=== PATIENT | male | born 1955 | race Caucasian/White ===

== ENCOUNTER 2016-08-01 08:35 | Inpatient (IN) | payer BC ==
[2016-08-01] MEDS ORDERED: NORMAL SALINE 1000 ML 1,000 ML IV ONE ×2 (08:58→09:00)
--- NOTE | 2016-08-01 08:58 | ER Document Report ---
ED Fall - General Time seen by provider: 08:55 Mode of Arrival: Medic Information source: Patient TRAVEL OUTSIDE OF THE [place] IN LAST 30 DAYS: No <LUDIVINA VARGAS - Last Filed: 08/01/16 09:32> <MK MELARA - Last Filed: 08/01/16 11:29> - General Chief Complaint: Fall Stated Complaint: FALL/HEAD INJURY Notes: Patient is a 61 year old male presenting to the ED for fall related to hypotension. Patient has not had a good appetite or intake of fluids over the past week because of vomiting, nausea, and diarrhea. Patient states the first full meal he had in 1 week was yesterday. Patient has also been lightheaded. Patient has a history of hypertension and is taking lisinopril and metoprolol. Patient also has a history of diabetes mellitus and is taking metformin. Patient has a history of stroke on 07/21/14. Patient has no known allergies. ( LUDIVINA VARGAS) - Related data Allergies/Adverse Reactions: No Known Allergies Allergy (Verified 08/01/16 08:38) Home Medications: Current Home Medications Amlodipine Besylate 5 mg PO DAILY 08/01/16 [History] Glipizide 5 mg PO BID 08/01/16 [History] Lisinopril/Hydrochlorothiazide [Lisinopril-Hctz 20-25 mg Tab] 1 each PO DAILY [History] Montelukast Sodium 10 mg PO DAILY 08/01/16 [History] Sitagliptin Phosphate [Januvia] 100 mg PO DAILY 08/01/16 [History] Past Medical History - General Information source: Patient - Social History Smoking Status: Never Smoker Cigarette use (# per day): No Chew tobacco use (# tins/day): No Frequency of alcohol use: None Drug Abuse: None Family History: None Patient has suicidal ideation: No Patient has homicidal ideation: No - Past Medical History Cardiac Medical History: Reports: Hx Hypertension - metoprolol and lisinopril Neurological Medical History: Reports: Hx Cerebrovascular Accident - left pontine infarct 07/21/14 Endocrine Medical History: Reports: Hx Diabetes Mellitus Type 2 Surgical Hx: Negative - Immunizations Hx Diphtheria, Pertussis, Tetanus Vaccination: No Hx Pneumococcal Vaccination: 05/02/13 <LUDIVINA VARGAS - Last Filed: 08/01/16 09:32> - Past Medical History Cardiac Medical History: Reports: Hx Hypercholesterolemia Pulmonary Medical History: Reports: None EENT Medical History: Reports: None Renal/ Medical History: Reports: None GI Medical History: Reports: None Musculoskeltal Medical History: Reports None Psychiatric Medical History: Reports: None <MK MELARA - Last Filed: 08/01/16 11:29> Review of Systems - Review of Systems Constitutional: No symptoms reported EENT: No symptoms reported Cardiovascular: See HPI, Lightheaded Respiratory: No symptoms reported Gastrointestinal: See HPI, Diarrhea, Nausea, Vomiting Genitourinary: No symptoms reported Male Genitourinary: No symptoms reported Musculoskeletal: No symptoms reported Skin: No symptoms reported Hematologic/Lymphatic: No symptoms reported Neurological/Psychological: See HPI -: Yes All other systems reviewed and negative <LUDIVINA VARGAS - Last Filed: 08/01/16 09:32> Physical Exam - Vital signs Interpretation: Hypotensive - General General appearance: Appears well, Alert In distress: Mild - HEENT Head: Normocephalic, Other - soft area to the top of the crown Eyes: Normal Pupils: PERRL Mucous membranes: Moist - Respiratory Respiratory status: No respiratory distress Chest status: Nontender Breath sounds: Normal Chest palpation: Normal - Cardiovascular Rhythm: Regular Heart sounds: Normal auscultation Murmur: No - Abdominal Inspection: Normal Distension: No distension Bowel sounds: Normal Tenderness: Nontender Organomegaly: No organomegaly - Back Back: Normal, Nontender. No: CVA tenderness - Extremities General upper extremity: Normal inspection, Normal ROM, Normal strength General lower extremity: Normal inspection, Normal ROM, Normal strength - Neurological Neuro grossly intact: Yes Cognition: Normal Orientation: AAOx4 [place] Scale Eye Opening: Spontaneous [place] Scale Verbal: Oriented [place] Scale Motor: Obeys Commands [place] Scale Total: 15 Speech: Normal Sensory: Normal - Psychological Associated symptoms: Normal affect, Normal mood - Skin Skin Temperature: Warm Skin Moisture: Dry <LUDIVINA VARGAS - Last Filed: 08/01/16 09:32> Course - Laboratory Result Diagrams: 08/01/16 08:52 08/01/16 08:52 <LUDIVINA VARGAS - Last Filed: 08/01/16 09:32> - Laboratory Result Diagrams: 08/01/16 08:52 08/01/16 08:52 - Diagnostic Test Radiology reviewed: Image reviewed, Reports reviewed - CT of the head shows a right occipital contusion with swelling. No intracranial injury. - EKG Interpretation by Me EKG shows normal: Sinus rhythm, [place], Intervals, QRS Complexes, ST-T Waves Rate: Normal - 58 Heart block present: 1st Degree When compared to previous EKG there are: No significant change - Consults Dr. Payan Time consulted: 11:25 Consulted provider: will come to ER <MK MELARA - Last Filed: 08/01/16 11:29> - Vital Signs Vital signs: Temp Pulse Resp BP Pulse Ox 97.4 F 63 19 98/59 L 100 08/01/16 08:41 08/01/16 08:41 08/01/16 11:16 08/01/16 11:16 08/01/16 11:16 - Laboratory Laboratory results interpreted by me: 08/01/16 08/01/16 08:52 08:52 WBC 11.1 H Hgb 13.0 L Hct 36.2 L Absolute Neutrophils 8.3 H Sodium 131.4 L Potassium 3.4 L Chloride 90 L BUN 126 H Creatinine 6.52 H Est GFR ( Amer) 11 L Est GFR (Non-Af Amer) 9 L Total Bilirubin 2.4 H Creatine Kinase 198 H Discharge <LUDIVINA VARGAS - Last Filed: 08/01/16 09:32> - Discharge Admitting Provider: Hospitalist Unit Admitted: Telemetry <MK MELARA - Last Filed: 08/01/16 11:29> - Discharge Clinical Impression: Syncope and collapse, Nausea, vomiting and diarrhea Contusion of occipital region of scalp Qualifiers: Encounter type: initial encounter Qualified Code(s): S00.03XA - Contusion of scalp, initial encounter Hypotension Qualifiers: Hypotension type: other hypotension type Qualified Code(s): I95.89 - Other hypotension Acute renal failure Qualifiers: Acute renal failure type: unspecified Qualified Code(s): N17.9 - Acute kidney failure, unspecified Condition: Stable Disposition: ADMITTED INPATIENT Referrals: CARSON KIRAN DO [Primary Care Provider] - Follow up as needed Scribe Attestation: 08/01/16 11:29 I personally performed the services described in the documentation, reviewed and edited the documentation which was dictated to the scribe in my presence, and it accurately records my words and actions. (MK MELARA) Scribe Documentation - Scribe Written by Scrjose:: Ludivina Vargas 08/01/16 10:35 acting as scribe for :: Shelly <LUDIVINA VARGAS - Last Filed: 08/01/16 09:32>
[2016-08-01] MEDS ORDERED: ONDANSETRON HCL INJ/PF 4 MG/2 ML SDV IV ONE (08:59)
[2016-08-01 09:04] LABS: ABSOLUTE EOSINOPHILS # (AUTO) 0.1 10^3/uL (0.0-0.6); ABSOLUTE LYMPHOCYTES (AUTO) 1.7 10^3/uL (0.5-4.7); ABSOLUTE NEUT (AUTO) 8.3 10^3/uL (1.7-8.2); BASOPHILS % (AUTO) 0.3 % (0-2); EOSINOPHILS % (AUTO) 0.9 % (0-6); HEMATOCRIT 36.2 % (37.9-51.0); HGB HCT DIFFERENCE 2.8; MEAN CORPUSCULAR HEMOGLOBIN 29.3 pg (27.0-33.4); MEAN CORPUSCULAR VOLUME 82 fl (80-97); MONOCYTES % (AUTO) 8.9 % (3-13); RED BLOOD COUNT 4.45 10^6/uL (4.35-5.55); SEGMENTED NEUTROPHILS % (AUTO) 74.9 % (42-78); WHITE BLOOD COUNT 11.1 10^3/uL (4.0-10.5)
[2016-08-01 09:25] LABS: ALANINE AMINOTRANSFERASE 27 U/L (21-72); ALKALINE PHOSPHATASE 60 U/L (38-126); ANION GAP 19 (5-19); ASPARTATE AMINO TRANSFERASE 18 U/L (17-59); BILIRUBIN,DIRECT 0.3 mg/dL (0.0-0.4); BILIRUBIN,TOTAL 2.4 mg/dL (0.2-1.3); CALCIUM 9.1 mg/dL (8.4-10.2); CARBON DIOXIDE 22 mmol/L (22-30); CHLORIDE 90 mmol/L (98-107); CREATINE KINASE 198 U/L (55-170); CREATININE RESULT 6.52 mg/dL (0.52-1.25); GLUCOSE 91 mg/dL (75-110); POTASSIUM 3.4 mmol/L (3.6-5.0); SODIUM 131.4 mmol/L (137-145); TOTAL PROTEIN 7.2 g/dL (6.3-8.2)
[2016-08-01 09:35] LABS: BLOOD UREA NITROGEN 126 mg/dL (7-20)
[2016-08-01 09:38] LABS: TROPONIN I < 0.012 ng/mL
[2016-08-01] MEDS ORDERED: RINGERS SOLUTION,LACTATED 1,000 ML IV ONE (10:14)
[2016-08-01] MEDS ORDERED: ACETAMINOPHEN 325 MG TABLET PO PRN (12:33)
[2016-08-01] MEDS ORDERED: ONDANSETRON 4 MG TAB.RAPDIS PO PRN (12:33)
[2016-08-01] MEDS ORDERED: ALBUTEROL SULFATE 0.083% NEB 2.5 MG/3 ML AMPUL NEB PRN (12:33)
[2016-08-01] MEDS ORDERED: ONDANSETRON HCL INJ/PF 4 MG/2 ML SDV IV PRN (12:33)
[2016-08-01] MEDS ORDERED: GLUCAGON,HUMAN RECOMB 1 MG INJ IM PRN (12:39)
[2016-08-01] MEDS ORDERED: DEXTROSE 40% GEL 15 GM TUBE PO PRN ×2 (12:39)
[2016-08-01] MEDS ORDERED: DEXTROSE 50%-WATER 25 GM/50 ML DISP.SYRIN IV PRN ×2 (12:39)
[2016-08-01] MEDS: NORMAL SALINE 1000 ML 1,000 ML IV PRN ×3 (12:59→23:55)
--- NOTE | 2016-08-01 13:06 | PDOC H&P ---
History of Present Illness Admission Date/PCP: 08/01/16 11:40 CARSON KIRAN DO Patient complains of: Passing out History of Present Illness: LARRY ARAGON is a 61 year old male who has a history of diabetes who reports a one-week history of nausea vomiting and decreased by mouth intake. He relates that his was sick 2 weeks ago with a similar illness. The patient has had decreased urinary output as well as the nausea and vomiting. Patient got up this morning and had a syncopal episode. He was found by his son who heard him fall onto the kitchen floor. The patient was awake when the son got to the kitchen and there was no evidence for any type of seizure activity. Patient did hit his head. He denies any prodromal symptoms. Denies any palpitations or tachycardia. His blood sugars have been normal by his report. He reports she's lost 15 pounds in the last week. Denies any fevers or chills. Past Medical History Cardiac Medical History: Reports: Hyperlipidema, Hypertension - metoprolol and lisinopril Pulmonary Medical History: Reports: None EENT Medical History: Reports: None Endocrine Medical History: Reports: Diabetes Mellitus Type 2 Renal/ Medical History: Reports: None GI Medical History: Reports: None Musculoskeltal Medical History: Reports: None Psychiatric Medical History: Reports: None Traumatic Medical History: Reports: None Infectious Medical History: Reports: None Past Surgical History Past Surgical History: Reports: None Social History Information Source: Patient Lives with: Family Smoking Status: Never Smoker Frequency of Alcohol Use: None Hx Recreational Drug Use: No Hx Prescription Drug Abuse: No - Advance Directive Resuscitation Status: Full Code Family History Family History: None Family History: Father is 79 alive and has coronary artery disease. Mother 78 alive and healthy. Parental Family History Reviewed: Yes Children Family History Reviewed: No Sibling(s) Family History Reviewed.: No Medication/Allergy Allergies/Adverse Reactions: No Known Allergies Allergy (Verified 08/01/16 08:38) Review of Systems Constitutional: PRESENT: weight loss. ABSENT: chills, fever(s), headache(s) Eyes: ABSENT: visual disturbances Cardiovascular: ABSENT: chest pain, dyspnea on exertion, edema, orthropnea, palpitations Respiratory: ABSENT: cough, hemoptysis Gastrointestinal: PRESENT: diarrhea, nausea, vomiting. ABSENT: abdominal pain, bloating, coffee ground emesis, constipation Musculoskeletal: ABSENT: joint swelling Integumentary: ABSENT: rash, wounds Neurological: ABSENT: abnormal gait, abnormal speech, confusion, dizziness, focal weakness, syncope Psychiatric: ABSENT: anxiety, depression Hematologic/Lymphatic: ABSENT: easy bleeding, easy bruising Physical Exam Vital Signs: Temp Pulse Resp BP Pulse Ox 97.4 F 63 22 H 97/64 L 99 08/01/16 08:41 08/01/16 08:41 08/01/16 12:30 08/01/16 12:31 08/01/16 12:31 General appearance: PRESENT: no acute distress, obese Head exam: PRESENT: atraumatic, normocephalic Eye exam: PRESENT: conjunctiva pink, EOMI, PERRLA. ABSENT: scleral icterus Ear exam: PRESENT: normal external ear exam Mouth exam: PRESENT: moist, tongue midline Neck exam: ABSENT: carotid bruit, JVD, lymphadenopathy, thyromegaly Respiratory exam: PRESENT: clear to auscultation janneth. ABSENT: rales, rhonchi, wheezes Cardiovascular exam: PRESENT: RRR. ABSENT: diastolic murmur, rubs, systolic murmur GI/Abdominal exam: PRESENT: normal bowel sounds, soft. ABSENT: distended, guarding, mass, organolmegaly, rebound, tenderness Extremities exam: ABSENT: calf tenderness, clubbing, pedal edema Neurological exam: PRESENT: alert, awake, oriented to person, oriented to place , oriented to time, oriented to situation, CN II-XII grossly intact, motor sensory deficit - Patient's right upper extremity 4 out of 5 strength. Psychiatric exam: PRESENT: appropriate affect, normal mood. ABSENT: homicidal ideation, suicidal ideation Skin exam: PRESENT: dry, intact, warm. ABSENT: cyanosis, rash Results Impressions: Head CT 08/01/16 10:15 IMPRESSION: No acute intracranial findings. Scalp swelling-hematoma. Assessment & Plan - Diagnosis (1) Syncope and collapse Is this a current diagnosis for this admission?: YesPlan: Syncope most likely is from prerenal causes given his acute renal failure and significant dehydration. We will have him monitored on telemetry and check serial cardiac enzymes to make certain there is not an acute cardiac event. (2) Acute renal failure Qualifiers: Acute renal failure type: unspecified Qualified Code(s): N17.9 - Acute kidney failure, unspecified Is this a current diagnosis for this admission?: YesPlan: Patient has had acute renal failure secondary to dehydration because of a gastroenteritis (3) Contusion of occipital region of scalp Qualifiers: Encounter type: initial encounter Qualified Code(s): S00.03XA - Contusion of scalp, initial encounter Is this a current diagnosis for this admission?: YesPlan: Head CT shows no acute intracranial abnormalities (4) Nausea, vomiting and diarrhea Is this a current diagnosis for this admission?: YesPlan: Most likely secondary to acute viral gastroenteritis (5) Diabetes mellitus type 2 in nonobese Is this a current diagnosis for this admission?: YesPlan: We'll hold his oral agents and cover with sliding scale insulin. (6) HTN (hypertension) Is this a current diagnosis for this admission?: YesPlan: Will hold his antihypertensives as he is very dehydrated at this time. The patient's delmi inhibitors probably will not be restarted unless his creatinine returns to normal. - Time Time Spent: 50 to 70 Minutes - Inpatient Certification Medical Necessity: Need For IV Fluids
[2016-08-01] MEDS: HEPARIN SOD (PORCINE) 5,000 UNIT/ML 1 ML SYRINGE SUBCUT SCH ×2 (14:46→22:10)
[2016-08-01 16:05] LABS: APPEARANCE,URINE CLEAR; BILIRUBIN,URINE NEGATIVE (NEGATIVE); GLUCOSE, URINE NEGATIVE (NEGATIVE); KETONES,URINE NEGATIVE (NEGATIVE); LEUKOCYTE ESTERASE,URINE MODERATE (NEGATIVE); NITRITE,URINE NEGATIVE (NEGATIVE); PROTEIN,URINE NEGATIVE (NEGATIVE); URINE SPECIFIC GRAVITY 1.006; UROBILINOGEN,URINE NEGATIVE mg/dL (<2.0)
[2016-08-01 16:06] LABS: TROPONIN I < 0.012 ng/mL
--- NOTE | 2016-08-01 21:11 | EKG REPORT ---
SEVERITY:- ABNORMAL ECG - SINUS RHYTHM FIRST DEGREE AV BLOCK : Confirmed by: Anai Arambula MD 01-Aug-2016 21:09:52
[2016-08-01 21:27] LABS: CREATINE KINASE MB 2.45 ng/mL (<4.55)
[2016-08-01 21:31] LABS: TROPONIN I < 0.012 ng/mL
[2016-08-01] MEDS ORDERED: FAMOTIDINE 20 MG TABLET PO SCH (22:00)
[2016-08-01] MEDS: FAMOTIDINE 20 MG TABLET PO SCH (22:32)
[2016-08-02 03:38] LABS: MEAN CORPUSCULAR VOLUME 81 fl (80-97)
[2016-08-02 03:43] LABS: HEMATOCRIT 30.1 % (37.9-51.0); HGB HCT DIFFERENCE 2.3; MEAN CORPUSCULAR HEMOGLOBIN 29.2 pg (27.0-33.4); RED BLOOD COUNT 3.72 10^6/uL (4.35-5.55); RED CELL DISTRIBUTION WIDTH 13.1 % (11.5-14.0); WHITE BLOOD COUNT 5.7 10^3/uL (4.0-10.5)
[2016-08-02 03:48] LABS: HEMOGLOBIN 10.8 g/dL (13.5-17.0)
[2016-08-02 03:56] LABS: ANION GAP 15 (5-19); CALCIUM 8.2 mg/dL (8.4-10.2); CARBON DIOXIDE 17 mmol/L (22-30); CHLORIDE 105 mmol/L (98-107); CREATININE RESULT 3.19 mg/dL (0.52-1.25); GLUCOSE 110 mg/dL (75-110); MAGNESIUM 1.9 mg/dL (1.6-2.3); POTASSIUM 3.2 mmol/L (3.6-5.0); SODIUM 136.7 mmol/L (137-145)
[2016-08-02 04:12] LABS: BLOOD UREA NITROGEN 104 mg/dL (7-20)
[2016-08-02 04:13] LABS: TROPONIN I < 0.012 ng/mL
[2016-08-02] MEDS: HEPARIN SOD (PORCINE) 5,000 UNIT/ML 1 ML SYRINGE SUBCUT SCH ×3 (05:45→23:15)
[2016-08-02] MEDS: FAMOTIDINE 20 MG TABLET PO SCH ×2 (09:27→23:14)
--- NOTE | 2016-08-02 11:35 | PDOC PROGRESS REPORT ---
Subjective Progress Note for:: 08/02/16 Subjective:: Patient reports he feels much better and is tolerating by mouth. Physical Exam Vital Signs: Temp Pulse Resp BP Pulse Ox 97.8 F 83 16 119/65 95 08/02/16 08:35 08/02/16 09:17 08/02/16 08:35 08/02/16 08:35 08/02/16 09:17 Intake & Output 08/01/16 08/02/16 08/03/16 06:59 06:59 06:59 Intake Total 2580 Output Total 1450 Balance 1130 Weight 104 kg General appearance: PRESENT: no acute distress Eye exam: PRESENT: conjunctiva pink. ABSENT: scleral icterus Mouth exam: PRESENT: moist, tongue midline Neck exam: ABSENT: JVD Respiratory exam: PRESENT: clear to auscultation janneth. ABSENT: rales, rhonchi, wheezes Cardiovascular exam: PRESENT: RRR. ABSENT: diastolic murmur, rubs, systolic murmur GI/Abdominal exam: PRESENT: normal bowel sounds, soft. ABSENT: distended, guarding, mass, organolmegaly, rebound, tenderness Extremities exam: ABSENT: calf tenderness, clubbing, pedal edema Neurological exam: PRESENT: alert, awake, oriented to person, oriented to place , oriented to time, oriented to situation, CN II-XII grossly intact. ABSENT: motor sensory deficit Psychiatric exam: PRESENT: appropriate affect Skin exam: PRESENT: dry, intact, warm. ABSENT: cyanosis, rash Results Laboratory Results: 08/02/16 03:30 08/02/16 03:30 08/01/16 08/01/16 08/01/16 12:53 12:53 15:50 WBC RBC Hgb Hct MCV MCH MCHC RDW Plt Count Sodium Potassium Chloride Carbon Dioxide Anion Gap BUN Creatinine Est GFR ( Amer) Est GFR (Non-Af Amer) Glucose Calcium Magnesium Urine Color STRAW Urine Appearance CLEAR Urine pH 5.0 Ur Specific [place] 1.006 Urine Protein NEGATIVE Urine Glucose (UA) NEGATIVE Urine Ketones NEGATIVE Urine Blood NEGATIVE Urine Nitrite NEGATIVE Ur Leukocyte Esterase MODERATE H Urine WBC (Auto) 1 Urine RBC (Auto) 1 Stool Occult Blood NEGATIVE Stool for White Cells NO WBCs SEEN 08/02/16 08/02/16 03:30 03:30 WBC 5.7 RBC 3.72 L Hgb 10.8 L D Hct 30.1 L MCV 81 MCH 29.2 MCHC 36.0 RDW 13.1 Plt Count 135 L Sodium 136.7 L Potassium 3.2 L Chloride 105 Carbon Dioxide 17 L Anion Gap 15 BUN 104 H D Creatinine 3.19 H Est GFR ( Amer) 24 L Est GFR (Non-Af Amer) 20 L Glucose 110 Calcium 8.2 L Magnesium 1.9 Urine Color Urine Appearance Urine pH Ur Specific [place] Urine Protein Urine Glucose (UA) Urine Ketones Urine Blood Urine Nitrite Ur Leukocyte Esterase Urine WBC (Auto) Urine RBC (Auto) Stool Occult Blood Stool for White Cells 08/01/16 08/01/16 08/01/16 15:05 15:05 20:51 Creatine Kinase 154 137 CK-MB (CK-2) 2.90 Troponin I < 0.012 08/01/16 08/02/16 08/02/16 20:51 03:30 03:30 Creatine Kinase 122 CK-MB (CK-2) 2.45 1.60 Troponin I < 0.012 < 0.012 Impressions: Head CT 08/01/16 10:15 IMPRESSION: No acute intracranial findings. Scalp swelling-hematoma. Assessment & Plan - Diagnosis (1) Syncope and collapse Is this a current diagnosis for this admission?: YesPlan: Syncope most likely is from prerenal causes given his acute renal failure and significant dehydration. Cardiac enzymes have been negative. (2) Acute renal failure Qualifiers: Acute renal failure type: unspecified Qualified Code(s): N17.9 - Acute kidney failure, unspecified Is this a current diagnosis for this admission?: YesPlan: Patient has had acute renal failure secondary to dehydration because of a gastroenteritis. Patient's renal function has improved overnight. (3) Contusion of occipital region of scalp Qualifiers: Encounter type: initial encounter Qualified Code(s): S00.03XA - Contusion of scalp, initial encounter Is this a current diagnosis for this admission?: YesPlan: Head CT shows no acute intracranial abnormalities (4) Nausea, vomiting and diarrhea Is this a current diagnosis for this admission?: YesPlan: Most likely secondary to acute viral gastroenteritis (5) Diabetes mellitus type 2 in nonobese Is this a current diagnosis for this admission?: YesPlan: We'll hold his oral agents and cover with sliding scale insulin. (6) HTN (hypertension) Is this a current diagnosis for this admission?: YesPlan: Will hold his antihypertensives at this time. The patient's delmi inhibitors probably will not be restarted unless his creatinine returns to normal. - Time Time Spent with patient: 25-34 minutes
[2016-08-02] MEDS: INSULIN REG, HUMAN 100 UNIT/ML 3 ML VIAL (PYX) SUBCUT PRN ×2 (12:36→16:39)
[2016-08-02] MEDS: NORMAL SALINE 1000 ML 1,000 ML IV PRN (23:53)
[2016-08-03 04:50] LABS: ABSOLUTE EOSINOPHILS # (AUTO) 0.2 10^3/uL (0.0-0.6); ABSOLUTE LYMPHOCYTES (AUTO) 1.4 10^3/uL (0.5-4.7); ABSOLUTE MONOCYTES (AUTO) 0.5 10^3/uL (0.1-1.4); ABSOLUTE NEUT (AUTO) 3.1 10^3/uL (1.7-8.2); BASOPHILS % (AUTO) 0.7 % (0-2); EOSINOPHILS % (AUTO) 3.6 % (0-6); HEMATOCRIT 31.2 % (37.9-51.0); HEMOGLOBIN 11.3 g/dL (13.5-17.0); HGB HCT DIFFERENCE 2.7; LYMPHOCYTES % (AUTO) 27.7 % (13-45); MEAN CORPUSCULAR HEMOGLOBIN 29.4 pg (27.0-33.4); MEAN CORPUSCULAR HGB CONC 36.3 g/dL (32.0-36.0); MEAN CORPUSCULAR VOLUME 81 fl (80-97); MONOCYTES % (AUTO) 9.6 % (3-13); RED BLOOD COUNT 3.86 10^6/uL (4.35-5.55); RED CELL DISTRIBUTION WIDTH 13.3 % (11.5-14.0); SEGMENTED NEUTROPHILS % (AUTO) 58.4 % (42-78); WHITE BLOOD COUNT 5.2 10^3/uL (4.0-10.5)
[2016-08-03 04:59] LABS: ANION GAP 12 (5-19); BLOOD UREA NITROGEN 57 mg/dL (7-20); CALCIUM 8.4 mg/dL (8.4-10.2); CARBON DIOXIDE 20 mmol/L (22-30); CHLORIDE 112 mmol/L (98-107); GLUCOSE 121 mg/dL (75-110); POTASSIUM 3.3 mmol/L (3.6-5.0); SODIUM 143.5 mmol/L (137-145)
[2016-08-03] MEDS: HEPARIN SOD (PORCINE) 5,000 UNIT/ML 1 ML SYRINGE SUBCUT SCH (06:14)
[2016-08-03] MEDS: NORMAL SALINE 1000 ML 1,000 ML IV PRN (06:55)
[2016-08-03] MEDS: FAMOTIDINE 20 MG TABLET PO SCH (10:10)
[2016-08-03 11:22] VITALS: BP 136/69
--- NOTE | 2016-08-03 13:10 | PDOC DISCHARGE SUMMARY ---
General - Admit/Disc Date/PCP Admission Date/Primary Care Provider: 08/01/16 12:33 CARSON KIRAN, Discharge Date: 08/03/16 - Discharge Diagnosis (1) Syncope and collapse Is this a current diagnosis for this admission?: YesSummary: Secondary to dehydration (2) Acute renal failure Is this a current diagnosis for this admission?: YesSummary: Secondary to gastritis and acute dehydration. Patient's creatinine has improved from 6 down to 1.7 the day of discharge. (3) Contusion of occipital region of scalp Is this a current diagnosis for this admission?: Yes (4) Nausea, vomiting and diarrhea Is this a current diagnosis for this admission?: YesSummary: Secondary to viral gastroenteritis. (5) Diabetes mellitus type 2 in nonobese Is this a current diagnosis for this admission?: Yes (6) HTN (hypertension) Is this a current diagnosis for this admission?: YesSummary: All of his antihypertensives have been stopped because of his low blood pressures. - Additional Information Resuscitation Status: Full Code Discharge Diet: Diabetic Discharge Activity: Activity As Tolerated Home Medications: Aspirin [Ecotrin 81 mg EC Tablet] 81 mg PO DAILY 08/01/16 Atorvastatin Calcium [Lipitor 20 mg Tablet] 20 mg PO DAILY 08/01/16 Glipizide 5 mg PO BID 08/01/16 Montelukast Sodium [Singulair 10 mg Tablet] 10 mg PO QHS 08/01/16 Sitagliptin Phosphate [Januvia] 100 mg PO DAILY 08/01/16 History of Present Illness History of Present Illness: LARRY ARAGON is a 61 year old male who has a history of diabetes who reports a one-week history of nausea vomiting and decreased by mouth intake. He relates that his was sick 2 weeks ago with a similar illness. The patient has had decreased urinary output as well as the nausea and vomiting. Patient got up this morning and had a syncopal episode. He was found by his son who heard him fall onto the kitchen floor. The patient was awake when the son got to the kitchen and there was no evidence for any type of seizure activity. Patient did hit his head. He denies any prodromal symptoms. Denies any palpitations or tachycardia. His blood sugars have been normal by his report. He reports she's lost 15 pounds in the last week. Denies any fevers or chills. Hospital Course Hospital Course: 61-year-old male who presented with syncopal episode. Patient had a previous history of acute viral gastroenteritis and a decreased by mouth intake. He was noted to be in acute renal failure with a creatinine greater than 6. He was admitted and monitored on telemetry and had no cardiac arrhythmias. Patient's creatinine improved with IV fluids from 6 down to 1.7 on the day of discharge. He had improvement in his appetite was able to eat and drink without difficulty. The patient has a history of hypertension and his antihypertensives were held because blood pressure was in the low-normal range. His blood pressures have remained in the normal range in his an hypertensives were not restarted. Physical Exam Vital Signs: Temp Pulse Resp BP Pulse Ox 98.0 F 85 18 136/69 H 100 08/03/16 11:27 08/03/16 11:27 08/03/16 11:27 08/03/16 11:27 08/03/16 11:27 Intake & Output 08/02/16 08/03/16 08/04/16 06:59 06:59 06:59 Intake Total 2580 4230 Output Total 1450 Balance 1130 4230 Weight 104 kg 105 kg General appearance: PRESENT: no acute distress Eye exam: PRESENT: conjunctiva pink. ABSENT: scleral icterus Mouth exam: PRESENT: moist, tongue midline Neck exam: ABSENT: carotid bruit, JVD, lymphadenopathy, thyromegaly Respiratory exam: PRESENT: clear to auscultation janneth. ABSENT: rales, rhonchi, wheezes Cardiovascular exam: PRESENT: RRR. ABSENT: diastolic murmur, rubs, systolic murmur GI/Abdominal exam: PRESENT: normal bowel sounds, soft. ABSENT: distended, guarding, mass, organolmegaly, rebound, tenderness Extremities exam: ABSENT: calf tenderness, clubbing, pedal edema Neurological exam: PRESENT: alert, awake, oriented to person, oriented to place , oriented to time, oriented to situation, CN II-XII grossly intact. ABSENT: motor sensory deficit Psychiatric exam: PRESENT: appropriate affect Skin exam: PRESENT: dry, intact, warm. ABSENT: cyanosis, rash Results Laboratory Results: 08/03/16 04:23 08/03/16 04:23 08/03/16 08/03/16 04:23 04:23 WBC 5.2 RBC 3.86 L Hgb 11.3 L Hct 31.2 L MCV 81 MCH 29.4 MCHC 36.3 H RDW 13.3 Plt Count 158 Seg Neutrophils % 58.4 Lymphocytes % 27.7 Monocytes % 9.6 Eosinophils % 3.6 Basophils % 0.7 Absolute Neutrophils 3.1 Absolute Lymphocytes 1.4 Absolute Monocytes 0.5 Absolute Eosinophils 0.2 Absolute Basophils 0.0 Sodium 143.5 Potassium 3.3 L Chloride 112 H Carbon Dioxide 20 L Anion Gap 12 BUN 57 H Creatinine 1.70 H Est GFR ( Amer) 50 L Est GFR (Non-Af Amer) 41 L Glucose 121 H Calcium 8.4 08/01/16 12:53 Stool - Stool - Final 08/01/16 12:53 Stool - Stool Stool Culture - Final NO SALMONELLA, SHIGELLA, CAMPYLOBACTER, OR E.COLI 0157 RECOVERED. NEGATIVE FOR SHIGA TOXINS 1&2. 08/01/16 08/01/16 08/01/16 15:05 15:05 20:51 Creatine Kinase 154 137 CK-MB (CK-2) 2.90 Troponin I < 0.012 08/01/16 08/02/16 08/02/16 20:51 03:30 03:30 Creatine Kinase 122 CK-MB (CK-2) 2.45 1.60 Troponin I < 0.012 < 0.012 Impressions: Head CT 08/01/16 10:15 IMPRESSION: No acute intracranial findings. Scalp swelling-hematoma. Qualifiers PATEINT BEING DISCHARGED WITH ANY OF THE FOLLOWING DIAGNOSIS?: No Plan Discharge Plan: Patient is discharged home in stable condition. Will follow up with primary care in 1-2 weeks. Time Spent: Greater than 30 Minutes
== END 2016-08-03 12:17 | disposition home or self-care (01) | DRG 641 ==
LOC: ER 08:35 → EH 11:40 → UNDOADMIN 11:40 → EH 12:33 → 4S 16:22
PROVIDERS: ADMIT Internal Medicine; ATTEND Internal Medicine
DX: E86.0 Dehydration (principal); N17.9 Acute kidney failure, unspecified; R55 Syncope and collapse; A08.4 Viral intestinal infection, unspecified; I95.89 Other hypotension; E78.5 Hyperlipidemia, unspecified; I10 Essential (primary) hypertension; E11.9 Type 2 diabetes mellitus without complications; S00.03XA Contusion of scalp, initial encounter; W19.XXXA Unspecified fall, initial encounter; Y93.9 Activity, unspecified; Y92.9 Unspecified place or not applicable; Y99.9 Unspecified external cause status; Z86.73 Personal history of transient ischemic attack (TIA), and cerebral infarction without residual deficits
CPT/HCPCS: 36415; 70450; 80048; 80053; 81001; 82272; 82550; 82553; 82962; 83735; 84484; 85025; 85027; 87045; 87205; 87493; 89055; 93005; 93010; 96360; 96361; 99285; J1644; J1815; J7030; J7120

== ENCOUNTER 2018-11-09 10:33 | Emergency (ER) | payer BC ==
[2018-11-09] MEDS ORDERED: ASPIRIN 81 MG TABLET, CHEWABLE PO ONE (10:45)
--- NOTE | 2018-11-09 10:47 | ER Document Report ---
ED Medical Screen (RME) - General Chief Complaint: Epigastric Pain Stated Complaint: ABNORMAL LABS Time Seen by Provider: 11/09/18 10:44 Primary Care Provider: CARSON KIRAN DO [Primary Care Provider] - Follow up as needed Mode of Arrival: Ambulatory Information source: Patient Notes: 63-year-old male with indigestion/gas/belching/epigastric pain. He states he h ad a friend recently from heart attack at a younger age and him and he wants to be checked out he does have a history of diabetes blood pressure chronic renal failure and he is concerned with the symptoms. He states he actually feels much better now but wants to get checked out. Patient is alert oriented respirations regular and unlabored speaking in full sentences walks with a even steady gait. I have greeted and performed a rapid initial assessment of this patient. A comprehensive ED assessment and evaluation of the patient, analysis of test results and completion of medical decision making process will be conducted by an additional ED providers. Dictation of this chart was performed using voice recognition software; therefore, there may be some unintended grammatical errors. TRAVEL OUTSIDE OF THE [place] IN LAST 30 DAYS: No - Related Data Allergies/Adverse Reactions: No Known Allergies Allergy (Verified 11/09/18 10:38) Past Medical History - Past Medical History Cardiac Medical History: Reports: Hx Hypercholesterolemia, Hx Hypertension - metoprolol and lisinopril Neurological Medical History: Reports: Hx Cerebrovascular Accident - left pontine infarct 07/21/14 Endocrine Medical History: Reports: Hx Diabetes Mellitus Type 2 Renal/ Medical History: Denies: Hx Peritoneal Dialysis - Immunizations Hx Diphtheria, Pertussis, Tetanus Vaccination: No Physical Exam - Vital signs Vitals: Temp Pulse Resp BP Pulse Ox 97.4 F 76 18 161/82 H 97 11/09/18 10:40 11/09/18 10:40 11/09/18 10:40 11/09/18 10:40 11/09/18 10:40 Course - Vital Signs Vital signs: Temp Pulse Resp BP Pulse Ox 97.4 F 76 18 161/82 H 97 11/09/18 10:40 11/09/18 10:40 11/09/18 10:40 11/09/18 10:40 11/09/18 10:40 Doctor's Discharge - Discharge Referrals: CARSON KIRAN DO [Primary Care Provider] - Follow up as needed
[2018-11-09 11:15] LABS: ABSOLUTE EOSINOPHILS # (AUTO) 0.1 10^3/uL (0.0-0.6); ABSOLUTE LYMPHOCYTES (AUTO) 1.5 10^3/uL (0.5-4.7); ABSOLUTE MONOCYTES (AUTO) 0.4 10^3/uL (0.1-1.4); ABSOLUTE NEUT (AUTO) 5.3 10^3/uL (1.7-8.2); BASOPHILS % (AUTO) 0.5 % (0-2); EOSINOPHILS % (AUTO) 1.4 % (0-6); HEMOGLOBIN 14.5 g/dL (13.5-17.0); LYMPHOCYTES % (AUTO) 20.9 % (13-45); MEAN CORPUSCULAR HEMOGLOBIN 28.8 pg (27.0-33.4); MEAN CORPUSCULAR HGB CONC 34.6 g/dL (32.0-36.0); MEAN CORPUSCULAR VOLUME 83 fl (80-97); MONOCYTES % (AUTO) 5.5 % (3-13); PLATELET COUNT 222 10^3/uL (150-450); RED BLOOD COUNT 5.04 10^6/uL (4.35-5.55); RED CELL DISTRIBUTION WIDTH 13.8 % (11.5-14.0); SEGMENTED NEUTROPHILS % (AUTO) 71.7 % (42-78); TOTAL CELLS COUNTED % (AUTO) 100 %; WHITE BLOOD COUNT 7.4 10^3/uL (4.0-10.5)
[2018-11-09 11:17] LABS: APPEARANCE,URINE CLEAR; BILIRUBIN,URINE NEGATIVE (NEGATIVE); COLOR,URINE YELLOW; GLUCOSE, URINE >=500 mg/dL (NEGATIVE); KETONES,URINE NEGATIVE (NEGATIVE); LEUKOCYTE ESTERASE,URINE NEGATIVE (NEGATIVE); NITRITE,URINE NEGATIVE (NEGATIVE); PROTEIN,URINE 30 mg/dL (NEGATIVE); URINE SPECIFIC GRAVITY 1.024; UROBILINOGEN,URINE NEGATIVE mg/dL (<2.0)
--- NOTE | 2018-11-09 11:19 | RADIOLOGY REPORT (SQ) ---
EXAM DESCRIPTION: CHEST 2 VIEWS COMPLETED DATE/TIME: 11/09/2018 11:02 am REASON FOR STUDY: Epigastric pain/dizziness/belching COMPARISON: 07/21/2014 EXAM PARAMETERS: NUMBER OF VIEWS: two views TECHNIQUE: Digital Frontal and Lateral radiographic views of the chest acquired. RADIATION DOSE: NA LIMITATIONS: none FINDINGS: LUNGS AND PLEURA: No opacities, masses or pneumothorax. No pleural effusion. MEDIASTINUM AND HILAR STRUCTURES: No masses or contour abnormalities. HEART AND VASCULAR STRUCTURES: Heart normal size. No evidence for failure. BONES: No acute findings. HARDWARE: None in the chest. OTHER: No other significant finding. IMPRESSION: NO ACUTE RADIOGRAPHIC FINDING IN THE CHEST. TECHNICAL DOCUMENTATION: JOB ID: [id number] [employer]- All Rights Reserved Reading location - IP/workstation name: [email or web address]
[2018-11-09 11:20] LABS: INTERNATIONAL RATION (INR) 1.05; PROTHROMBIN TIME 13.8 SEC (11.4-15.4)
[2018-11-09 11:21] LABS: PARTIAL THROMBOPLASTIN TIME 26.4 SEC (23.5-35.8)
[2018-11-09 11:38] LABS: ALANINE AMINOTRANSFERASE 29 U/L (21-72); ALBUMIN 4.5 g/dL (3.5-5.0); ALKALINE PHOSPHATASE 72 U/L (38-126); ANION GAP 7 (5-19); ASPARTATE AMINO TRANSFERASE 22 U/L (17-59); BILIRUBIN,DIRECT 0.2 mg/dL (0.0-0.4); BILIRUBIN,TOTAL 2.4 mg/dL (0.2-1.3); BLOOD UREA NITROGEN 19 mg/dL (7-20); CALCIUM 9.2 mg/dL (8.4-10.2); CARBON DIOXIDE 28 mmol/L (22-30); CHLORIDE 106 mmol/L (98-107); GLUCOSE 130 mg/dL (75-110); POTASSIUM 4.2 mmol/L (3.6-5.0); SODIUM 140.8 mmol/L (137-145); TOTAL PROTEIN 8.1 g/dL (6.3-8.2)
[2018-11-09 11:47] LABS: CREATINE KINASE MB 1.86 ng/mL (<4.55)
[2018-11-09 11:51] LABS: TROPONIN I < 0.012 ng/mL
[2018-11-09 16:51] VITALS: BP 135/78
--- NOTE | 2018-11-09 19:14 | ER Document Report ---
Entered by BENITEZ CHEN SCRIBE 11/09/18 1147 Acting as scribe for:SUMA WILDER DO ED General - General Chief Complaint: Epigastric Pain Stated Complaint: ABNORMAL LABS Time Seen by Provider: 11/09/18 10:44 Primary Care Provider: CARSON KIRAN DO [NO LOCAL MD] - Follow up as needed Mode of Arrival: Ambulatory Notes: Patient is a 63-year-old male who presents to the emergency department today after feeling dizzy this morning. Patient states he lost a friend due to cardiac reasons recently and he "got scared this morning". Patient states that he went to an urgent care, had an EKG performed which was normal, but was sent here for further evaluation. Patient states along with his dizziness he has been "burping a lot" but had no other symptoms. Patient denies any chest pain. Patient does mention some left hand numbness which he says is a chronic issue for him. Patient states he had a stress test about 3 years ago which was negative. Patient takes aspirin daily. Patient has a acid reflux. TRAVEL OUTSIDE OF THE [place] IN LAST 30 DAYS: No - Related Data Allergies/Adverse Reactions: No Known Allergies Allergy (Verified 11/09/18 10:38) Past Medical History - General Information source: Patient - Social History Smoking Status: Never Smoker Cigarette use (# per day): No Chew tobacco use (# tins/day): No Frequency of alcohol use: None Drug Abuse: None Lives with: Family Family History: None Patient has suicidal ideation: No Patient has homicidal ideation: No - Past Medical History Cardiac Medical History: Reports: Hx Hypercholesterolemia, Hx Hypertension - metoprolol and lisinopril Neurological Medical History: Reports: Hx Cerebrovascular Accident - left pontine infarct 07/21/14 Endocrine Medical History: Reports: Hx Diabetes Mellitus Type 2 Surgical Hx: Negative - Immunizations Hx Diphtheria, Pertussis, Tetanus Vaccination: No Hx Pneumococcal Vaccination: 05/02/13 Review of Systems - Review of Systems Constitutional: No symptoms reported EENT: No symptoms reported Cardiovascular: See HPI, Dizziness. denies: Chest pain Respiratory: No symptoms reported Gastrointestinal: No symptoms reported Genitourinary: No symptoms reported Male Genitourinary: No symptoms reported Musculoskeletal: No symptoms reported Skin: No symptoms reported Hematologic/Lymphatic: No symptoms reported Neurological/Psychological: No symptoms reported -: Yes All other systems reviewed and negative Physical Exam - Vital signs Vitals: Temp Pulse Resp BP Pulse Ox 97.4 F 76 18 161/82 H 97 11/09/18 10:40 11/09/18 10:40 11/09/18 10:40 11/09/18 10:40 11/09/18 10:40 - Notes Notes: PHYSICAL EXAM GENERAL: Alert, interacts well. No acute distress. HEAD: Normocephalic, atraumatic. EYES: Pupils equal, round, and reactive to light. Extraocular movements intact. ENT: Oral mucosa moist, tongue midline. NECK: Full range of motion. Supple. Trachea midline. LUNGS: Clear to auscultation bilaterally, no wheezes, rales, or rhonchi. No respiratory distress. HEART: Regular rate and rhythm. No murmurs, gallops, or rubs. ABDOMEN: Soft, non-tender. Non-distended. Bowel sounds present in all 4 quadrants. No guarding, rigidity, or rebound. Small easily reducible umbilical hernia. EXTREMITIES: Moves all 4 extremities spontaneously. No edema, radial and dorsalis pedis pulses 2/4 bilaterally. No cyanosis. NEUROLOGICAL: Alert and oriented x3. Normal speech. PSYCH: Normal affect, normal mood. SKIN: Warm, dry, normal turgor. No rashes or lesions noted. Course - Re-evaluation Re-evalutation: 11/09/18 16:35 CBC unremarkable, coags normal, CMP shows a glucose of 130 otherwise unremarkable, cardiac enzymes negative x2, urinalysis shows glucose but no signs of infection, chest x-ray is unremarkable, EKG is nonischemic. Patient has had no further chest pain or burping or hiccuping here. Patient will be discharged to home, recommend follow-up with primary care physician as an outpatient and consider possible stress test as an outpatient. - Vital Signs Vital signs: Temp Pulse Resp BP Pulse Ox 97.4 F 76 18 161/82 H 97 11/09/18 10:40 11/09/18 10:40 11/09/18 10:40 11/09/18 10:40 11/09/18 10:40 - Laboratory Result Diagrams: 11/09/18 10:50 11/09/18 10:50 Laboratory results interpreted by me: 11/09/18 11/09/18 10:50 10:50 Glucose 130 H Total Bilirubin 2.4 H Urine Protein 30 H Urine Glucose (UA) >=500 H - EKG Interpretation by Me Additional EKG results interpreted by me: 11/09/18 16:35 EKG shows sinus rhythm at a rate of 81, WA interval of 200, left axis deviation, no ST segment elevations or depressions, no T wave inversions but there is T wave flattening in lead III per my interpretation. Discharge - Discharge Clinical Impression: Eructation, Chest pain of uncertain etiology Condition: Stable Disposition: HOME, SELF-CARE Additional Instructions: The increased belching and the somewhat burning pain that goes up into your chest does not appear to look at a heart attack today. It is still a good idea that you continue to follow-up with your primary care physician as an outpatient and consider a stress test as an outpatient. Referrals: CARSON KIRAN, DO [NO LOCAL MD] - Follow up as needed I personally performed the services described in the documentation, reviewed and edited the documentation which was dictated to the scribe in my presence, and it accurately records my words and actions.
--- NOTE | 2018-11-09 20:05 | EKG REPORT ---
SEVERITY:- NORMAL ECG - SINUS RHYTHM : Confirmed by: Anai Arambula MD 09-Nov-2018 20:04:02
== END 2018-11-09 16:51 | disposition home or self-care (01) ==
LOC: ER 10:33
DX: R14.2 Eructation (principal); R07.9 Chest pain, unspecified; R42 Dizziness and giddiness; R20.0 Anesthesia of skin; K42.9 Umbilical hernia without obstruction or gangrene; I10 Essential (primary) hypertension; E11.9 Type 2 diabetes mellitus without complications; Z79.82 Long term (current) use of aspirin; Z86.73 Personal history of transient ischemic attack (TIA), and cerebral infarction without residual deficits
CPT/HCPCS: 36415; 71046; 80053; 81001; 82550; 82553; 83690; 84484; 85025; 85610; 85730; 93005; 93010; 99284